=== PATIENT | male | born 1990 | race Caucasian/White ===

== ENCOUNTER 2016-07-22 05:29 | Observation (INO) | payer OTHER ==
[2016-07-22 05:48] LABS: % IMMATURE GRANULYOCYTES 0.8 % (0.0-1.1); ABSOLUTE IMMATURE GRANULOCYTES 0.16 10^3/uL (0.00-0.10); ADD DIFF? NO; ADD MORPH? NO; ADD SCAN? NO; ATYPICAL LYMPHOCYTE FLAG 0 (0-99); FRAGMENT RBC FLAG 0 (0-99); HEMATOCRIT 52.6 % (40.0-51.0); LEFT SHIFT FLG 0 (0-99); LIPEMIA HEMOLYSIS FLAG 90 (0-99); MEAN CELL HEMOGLOBIN 32.1 pg (27.9-34.1); MEAN CELL HEMOGLOBIN CONCENTR. 34.2 g/dL (32.4-36.7); MEAN CELL VOLUME 93.8 fL (81.5-99.8); MEAN PLATELET VOLUME 9.6 fL (8.7-11.7); PLATELET CLUMPS FLAG 0 (0-99); PLATELET COUNT 405 10^3/uL (150-400); RED BLOOD CELL COUNT 5.61 10^6/uL (4.40-6.38); RED CELL DISTRIBUTION WIDTH 12.6 % (11.5-15.2)
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
[2016-07-22 05:59] LABS: ANION GAP 18 mEq/L (8-16); CALCIUM 8.9 mg/dL (8.5-10.4); CARBON DIOXIDE 24 mEq/l (22-31); CHLORIDE 106 mEq/L (97-110); CREATININE 0.8 mg/dL (0.7-1.3); GLOMERULAR FILTRATION RATE > 60; GLUCOSE 145 mg/dL (70-100); POTASSIUM 5.2 mEq/L (3.5-5.2); SODIUM 148 mEq/L (134-144)
[2016-07-22] MEDS ORDERED: ceFAZolin 2 GM/DEXTROSE 100 ML IV ONE (06:08)
[2016-07-22] MEDS ORDERED: TDAP ADULT 0.5 ML INJ (BOOSTRIX) IM ONE (06:09)
[2016-07-22] MEDS ORDERED: fentaNYL 100 MCG/2 ML INJ ONE (06:41)
[2016-07-22] MEDS ORDERED: PROPOFOL 200 MG/20 ML VIAL ONE ×2 (06:42)
[2016-07-22] MEDS ORDERED: SUCCINYLCHOLINE CHLORIDE*ANESTHESIA ONLY*200 MG/10 ML SYR IVP ONE (06:44)
[2016-07-22] MEDS ORDERED: LIDOCAINE 2% 100 MG/5 ML SYR IVP ONE (06:44)
[2016-07-22] MEDS ORDERED: CLINDAMYCIN 900 MG/DEXTROSE 50 ML IV ONE (07:00)
[2016-07-22] MEDS ORDERED: PHENYLEPHRINE HCL 100 MCG/ML SYR ONE (07:09)
[2016-07-22] MEDS ORDERED: BUPIVACAINE/EPI 0.5% 30 ML SDV ONE (07:22)
[2016-07-22] MEDS ORDERED: DEXAMETHASONE 4 MG/ML VIAL ONE (07:28)
[2016-07-22] MEDS ORDERED: ONDANSETRON 4 MG/2 ML VIAL ONE (07:28)
[2016-07-22] MEDS ORDERED: SKIN ADHESIVE (DERMABOND) 1 EACH TP ONE (07:31)
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
[2016-07-22] MEDS ORDERED: ONDANSETRON 4 MG/2 ML VIAL IVP PRN (08:01)
[2016-07-22] MEDS ORDERED: ZOLPIDEM TARTRATE 5 MG TAB PO PRN (08:01)
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
[2016-07-22] MEDS ORDERED: D5W 1/2 NS 1,000 ML IV SCH (08:15)
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
[2016-07-22] MEDS ORDERED: METOPROLOL TARTRATE 50 MG TAB PO ONE (12:52)
[2016-07-22] MEDS: HYDROCODONE/APAP 5/325 TAB PO PRN ×2 (13:16→20:04)
[2016-07-22] MEDS ORDERED: BACITRACIN OINTMENT 1 PACKET TP ONE (13:45)
[2016-07-22 14:04] LABS: ETHANOL SERUM 123 mg/dL (0-10)
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
[2016-07-22] MEDS: GABAPENTIN 100 MG CAP PO SCH (20:04)
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
[2016-07-22] MEDS ORDERED: METOPROLOL SUCCINATE XR 50 MG TAB PO ONE (21:00)
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
[2016-07-23] MEDS: HYDROCODONE/APAP 5/325 TAB PO PRN ×2 (07:42→15:54)
[2016-07-23] MEDS: GABAPENTIN 100 MG CAP PO SCH ×3 (07:43→20:35)
[2016-07-23] MEDS ORDERED: POLYETHYLENE GLYCOL 3350 17 GM PKT PO PRN (08:58)
[2016-07-23] MEDS ORDERED: LACTULOSE 20 GM/30 ML UDCUP PO PRN (08:58)
[2016-07-23] MEDS ORDERED: MAGNESIUM HYDROXIDE 30 ML UDCUP PO PRN (08:58)
[2016-07-23] MEDS ORDERED: BISACODYL 10 MG SUPP PR PRN (08:58)
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
[2016-07-23] MEDS ORDERED: FLU VACC QS 2016-17(3-64YR)/PF 0.5 ML SYR (FLUARIX QUAD) IM ONE (09:56)
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
[2016-07-23] MEDS: SENNOSIDES/DOCUSATE SODIUM TAB PO SCH ×2 (10:19→20:35)
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
[2016-07-23] MEDS ORDERED: METOPROLOL SUCCINATE XR 100 MG TAB PO SCH ×2 (21:00)
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
[2016-07-24] MEDS: HYDROCODONE/APAP 5/325 TAB PO PRN (04:37)
--- NOTE | 2016-07-24 07:18 | NEUSURGPN ---
[id number] Cervical MRI shows some right sided C3/4 foraminal stenosis, no acute surgical intervention for this at this time Will sign off. Please notify NS with any change in neuro/motor exam Please have patient follow up with Dr. Christensen office as an outpatient in 3-4weeks Subjective: Pain and strength improved Objective: NAD A&Ox3 MAEx4 5/5 and equal in BUE and BLE expcet right deltoid 5-/5 Catheter Insertion Date: 07/22/16 - Physician Discussed Patient with : [facility] Physical Exam - Vitals, I&O, Labs I and O 07/23/16 07/24/16 07/25/16 05:59 05:59 05:59 Intake Total 2100 1200 Output Total 1950 1450 Balance 150 -250 Weight 99.79 kg Intake: Oral (ml) 1300 1200 IV Intake (ml) 800 Output: Urine (ml) 1500 1450 Catheter 1500 Urinal 1450 Estimated Blood Loss (ml) 50 Emesis (ml) 400 Other: Intake Quantity No Yes Sufficient Number of Voids Catheter 2 Urinal 2 Number of Emesis 1 Occurrences Vital Signs Temp Pulse Resp BP Pulse Ox 36.8 C 68 19 135/72 H 93 07/23/16 23:47 07/23/16 23:47 07/23/16 23:47 07/23/16 23:47 07/23/16 23:47 ICD10 Worksheet Patient Problems: Problems Problem Status Diagnosed Facial contusion Acute Laceration of neck Acute Nasal fracture Acute
[2016-07-24 07:21] VITALS: BP 129/66; PULSE 71; RESP 15; TEMP 98.2; O2SAT 92
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
[2016-07-24] MEDS: SENNOSIDES/DOCUSATE SODIUM TAB PO SCH (08:25)
[2016-07-24] MEDS: GABAPENTIN 100 MG CAP PO SCH (08:25)
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
== END 2016-07-24 11:36 | disposition home or self-care (01) ==
LOC: EDUNIT# → INTOOBSV 06:04 → F3N 06:42
PROVIDERS: ADMIT Surgery; ATTEND Surgery
PROC: 0JQ40ZZ Repair Right Neck Subcutaneous Tissue and Fascia, Open Approach (ICD-10-PCS; 2016-07-22)
PROC: 0WJ60ZZ Inspection of Neck, Open Approach (ICD-10-PCS; principal; 2016-07-22 06:30)
DX: S11.81XA Laceration without foreign body of other specified part of neck, initial encounter (principal); S02.2XXA Fracture of nasal bones, initial encounter for closed fracture; S05.12XA Contusion of eyeball and orbital tissues, left eye, initial encounter; S05.8X2A Other injuries of left eye and orbit, initial encounter; S00.81XA Abrasion of other part of head, initial encounter; X99.1XXA Assault by knife, initial encounter; I10 Essential (primary) hypertension; R53.1 Weakness; R20.2 Paresthesia of skin; M48.02 Spinal stenosis, cervical region; Z88.0 Allergy status to penicillin; Z23 Encounter for immunization; Y99.8 Other external cause status
CPT/HCPCS: 12032; 20100; 70450; 70498; 70540; 71550; 72141; 90471; 92523; 96365; 97165; 99285; G0378; 82947-QW; G0008; G0480; J0330; J0690; J1100; J2001; J2370; J2405; J2704; J3010